=== PATIENT | female | born 2000 | race African-American/Black ===

== ENCOUNTER 2021-10-07 11:13 | Emergency (ER) | payer OTHER ==
[~2021-10-07 11:13] MED LIST: KEFLEX CAP 500500 MG PO; OMNICEF 300 MG300 MG PO; PROVENTIL HFA6.7 GM INH; TESSALON PERLE100 MG PO; ZOFRAN4 MG PO
[2021-10-07 12:26] LABS: HEMOGLOBIN 9.6 gm/dl (12.3-15.3); RED BLOOD COUNT 3.29 M/UL (4.00-5.10); WHITE BLOOD COUNT 8.9 K/UL (4.5-11.0)
[2021-10-07 12:52] LABS: BUN/CREATININE RATIO 9 (0-10)
== END 2021-10-07 14:32 | disposition home or self-care (01) ==
LOC: ER1 11:13
PROVIDERS: Physician Assistant
DX: O20.0 Threatened abortion (principal); Z3A.19 19 weeks gestation of pregnancy
CPT/HCPCS: 80053; 81001; 85025; 86850; 86900; 86901; 99284